=== PATIENT | male | born 1995 | race Native Hawaiian/Other Pacific Islander ===

== ENCOUNTER 2023-01-14 14:08 | Outpatient (CLI) | payer OTHER | END 2023-01-14 19:25 | disposition home or self-care (01) | LOC: RAD 14:08 | PROVIDERS: ATTEND Nurse Practitioner | DX: Z13.6 Encounter for screening for cardiovascular disorders (principal); R07.89 Other chest pain; R00.0 Tachycardia, unspecified; Z82.49 Family history of ischemic heart disease and other diseases of the circulatory system ==